=== PATIENT | female | born 1995 | race Caucasian/White ===

== ENCOUNTER 2024-10-16 15:12 | Emergency (ER) | payer OTHER, SELFPAY ==
--- NOTE | 2024-10-16 15:25 | ED.GENMED ---
ED Provider Triage
<Ken Renteria PA-C - Last Filed: 10/16/24 15:29>
-
Patient seen by provider in Triage?: Seen in Triage
Attestation: A medical screening examination has been initiated by a qualified medical provider. Based on the assessment performed at this time, it has been determined that an emergent medical condition may exist and the patient has been informed
that further medical evaluation and possible additional diagnostic testing may be needed.
HPI: 29 year old female presenting to ER for evaluation with concern for possible miscarriage. 2 miscarriages in last 6 months. Heavy bleeding yesterday into today. Unsure if .
GENERAL: Alert , in no apparent distress
EYE: No visual abnormalities.
NECK: Trachea midline
ENT: No visible abnormalities.
LUNGS: No acute respiratory distress
NEUROLOGICAL: Alert and oriented
SKIN: Skin intact. No visible changes.
MUSCULOSKELETAL: Moving extremities normally
PSYCH: Normal and appropriate interaction.
This is a medical evaluation conducted in person to initiate diagnostic evaluation and provide initial therapeutics. Please see further documentation by the treating clinician.
History of Present Illness
<Ken Renteria PA-C - Last Filed: 10/16/24 15:29>
General
Chief Complaint: Problems
Time Seen by Provider: 10/16/24 18:07
<Samantha Mercado MD - Last Filed: 10/16/24 19:47>
General
Source: patient
Exam Limitations: none
Nursing documentation reviewed up to this point in time: agreed with
History of Present Illness
History of Present Illness:
The patient is a pleasant 29-year-old female who reports that she developed vaginal bleeding 2 days ago. Patient reports that this bleeding was unexpected because she was not due for her period until today. Additionally, patient reports increased
pelvic cramping, especially on the right side. Patient reports she has been trying to get for at least 1 year. She reports that so far this year, she is experienced 2 early miscarriages and was afraid that she was miscarrying again.
However, she did not take a test at home. She denies any lightheadedness, chest pain or shortness of breath.
Past History
<Ken Renteria PA-C - Last Filed: 10/16/24 15:29>
Past History
ED Past Medical History: None
ED Past Surgical History: Other (Benign breast tumor removed one month ago)
Social History
Tobacco: Smoker
Personal: Single
Living: with family
Employment: Employed
Family History
Family History: Other (Noncontributory)
<Samantha Mercado MD - Last Filed: 10/16/24 19:47>
Social History
Tobacco: Other
Alcohol: Other
Drug: None
Personal:
Review of Systems
<Samantha Mercado MD - Last Filed: 10/16/24 19:47>
Review of Systems
Allergies reviewed?: Yes
All Other Systems: ROS reviewed and negative except as documented in HPI and ROS
Constitutional: Reports no symptoms
EENT: Reports no symptoms
Respiratory: Reports no symptoms
Cardiac: Reports no symptoms
ABD/GI: Reports no symptoms
: Reports bleeding and other
Musculoskeletal: Reports no symptoms
Skin: Reports no symptoms
Neurological: Reports no symptoms
Endocrine: Reports no symptoms
Hematologic/Lymphatic: Reports no symptoms
Psychiatric: Reports no symptoms
Phy Exam
<Samantha Mercado MD - Last Filed: 10/16/24 19:47>
Physical Exam
Physical Exam:
Physical Exam
General: no apparent distress, not acutely ill. Well appearing
Neck: supple.
Heart: s1/s2 regular rate and rhythm, no murmur. equal radial pulses.
Lungs: no acute respiratory distress. clear bilaterally
Abdomen: normal bowel sounds. not tender. no CVAT
Neuro: alert and oriented. no focal neurological deficits
Skin: no rash
Psychiatric: well kept. interactive and cooperative
Extremities: no edema. no calf tenderness. negative homans. good distal pulses
Course
<Ken Renteria PA-C - Last Filed: 10/16/24 15:29>
Orders/Labs/Results
Orders:
Orders
10/16/24 15:27
Test Result ONCE
10/16/24 15:33
Basic Metabolic Panel Urgent
Complete Blood Count/With Diff Urgent
Ferritin Urgent
Comment: ADD ON
HCG, Serum Qualitative Screen Urgent
Iron Urgent
Total Iron Binding Urgent
10/16/24 18:17
Add On- LAB Urgent
Tests Added?: ferritin
10/16/24 18:32
US Pelvis Only (non-obstetric) Urgent
Comment:
Reason For Exam: R pelvic pain
Abnormal Lab Results
10/16/24
15:33
MPV 12.1 H fL
(7.4-10.4)
10/16/24 15:33
10/16/24 15:33
Vital Signs
Initial and Last Documented VS:
Initial Vital Signs
Temp Pulse Resp BP Pulse Ox
98.7 F 123 18 123/84 100
10/16/24 15:26 10/16/24 15:26 10/16/24 15:26 10/16/24 15:26 10/16/24 15:26
Last Documented Vital Signs
Temp Pulse Resp BP Pulse Ox
98.7 F 123 18 123/84 100
10/16/24 15:26 10/16/24 15:26 10/16/24 15:26 10/16/24 15:26 10/16/24 15:26
<Samantha Mercado MD - Last Filed: 10/16/24 19:47>
Orders/Labs/Results
Orders:
Orders
10/16/24 15:27
Test Result ONCE
10/16/24 15:33
Basic Metabolic Panel Urgent
Complete Blood Count/With Diff Urgent
Ferritin Urgent
Comment: ADD ON
HCG, Serum Qualitative Screen Urgent
Iron Urgent
Total Iron Binding Urgent
10/16/24 18:17
Add On- LAB Urgent
Tests Added?: ferritin
10/16/24 18:32
US Pelvis Only (non-obstetric) Urgent
Comment:
Reason For Exam: R pelvic pain
Abnormal Lab Results
10/16/24
15:33
MPV 12.1 H fL
(7.4-10.4)
10/16/24 15:33
10/16/24 15:33
Vital Signs
Initial and Last Documented VS:
Initial Vital Signs
Temp Pulse Resp BP Pulse Ox
98.7 F 123 18 123/84 100
10/16/24 15:26 10/16/24 15:26 10/16/24 15:26 10/16/24 15:26 10/16/24 15:26
Last Documented Vital Signs
Temp Pulse Resp BP Pulse Ox
98.7 F 123 18 123/84 100
10/16/24 15:26 10/16/24 15:26 10/16/24 15:26 10/16/24 15:26 10/16/24 15:26
Information
Weeks gestation: N/A
Location: N/A
<Samantha Mercado MD - Last Filed: 10/16/24 19:47>
MDM/Problems Addressed
Differential Diagnosis Includes:
Threatened , menstrual period, irregular vaginal bleeding
MDM/Problems Addressed:
Patient presents with acute vaginal bleeding which she feels is unusual because it developed ' 2 days before her period should have come'
<Samantha Mercado MD - Last Filed: 10/16/24 19:47>
*Radiology
Radiology exam reviewed: radiology read reviewed
*Pulse Oximetry
Patient hypoxic: no
*EKG
Interpreted by ED Provider?: NA
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
*Critical Care Note
Total Time (30-74mins, 75-104mins- exclusive of procedures): Not Applicable
Data Reviewed
Source: patient
<Samantha Mercado MD - Last Filed: 10/16/24 19:47>
Patient Management
Social determinants of health affecting care: Living situation and Strong social support
<Samantha Mercado MD - Last Filed: 10/16/24 19:47>
Update Note
Update Note:
Patient continues to look wonderful, comfortable and hemodynamically stable
ED Attending Note
<Ken Renteria PA-C - Last Filed: 10/16/24 15:29>
-
Portions of this chart may have been created with voice recognition software.� Occasional wrong word or��sound alike� substitutions may have occurred due to the inherent limitations of voice recognition software.
Discharge Plan
Departure
Patient Disposition: Home (Routine Discharge)
Date of Disposition: 10/16/24
Time of Disposition: 19:46
Patient with high blood pressure during this ER visit?: No
Condition: Good
Covid-19: Not Applicable
Discharge Problem:
Vaginal bleeding
Instructions: Heavy Periods ED
Prescriptions:
No Action
Vitamins Tablet
1 tab PO DAILY
Pepcid
acetaminophen 325 MG tablet
650 mg PO Q4HPRN PRN (Reason: mild pain) 0RF
sennosides-docusate sodium 1 TABLET tablet
1 tab PO DAILYPRN PRN (Reason: constipation) Qty: 30 0RF
ferrous sulfate [FeroSul] 325 MG tablet
325 mg PO BID Qty: 60 0RF
ibuprofen 600 MG tablet
600 mg PO Q6HPRN PRN (Reason: moderate pain/cramps) Qty: 60 0RF
hydrocortisone 1 APPLIC ointment
0 applic topical BID 0RF
Referrals:
UNKNOWN,NO INTERVIEW [Family Provider] -
Interventions
Interventions:
*Risk Screen - Suicide Last Done: 10/16/24 15:27
*Neglect/Abuse Screening Last Done: 10/16/24 15:27
Discharge Date and Time
Print Language: ARMENIAN
[2024-10-16 15:26] VITALS: BP 123/84
[2024-10-16 15:43] LABS: % Basophils 0.7 % (0-2); % Eosinophils 1.9 % (0-6); % Immature Granulocytes 0.2 % (0-0.5); % Lymphocytes 33.4 % (20.5-51.1); % Monocytes 8.4 % (1.7-9.3); % Neutrophils 55.4 % (42.2-75.2); Absolute Eosinophils 0.1 10^3/uL (0-0.7); Absolute Monocytes 0.5 10^3/uL (0.1-0.6); Absolute Neutrophils 3.2 10^3/uL (1.4-6.5); Hematocrit 38.9 % (37.0-47.0); Mean Corp Hgb Conc. 33.4 g/dL (33.0-37.0); Mean Corpuscular Hgb 29.5 pg (27.0-31.0); Mean Corpuscular Volume 88.2 fL (81.0-99.0); Mean Platelet Volume 12.1 fL (7.4-10.4); Nucleated Red Blood Cells % 0 %; Platelet Count 220 10^3/uL (130-400); Red Blood Cell Count 4.41 10^6/uL (4.20-5.40); Red Cell Dist. Width 12.6 % (11.5-14.5); White Blood Cell Count 5.8 10^3/uL (4.8-10.8)
[2024-10-16 15:52] LABS: HCG, Serum Qualitative Screen Negative
[2024-10-16 15:55] LABS: Blood Urea Nitrogen 13 mg/dl (7-17); Calcium 9.7 mg/dl (8.4-10.2); Carbon Dioxide 25 mmol/L (22-30); Chloride 104 mmol/L (98-107); Glucose 76 mg/dl (70-99); Iron 101 ug/dl (37-170); Potassium 3.9 mmol/L (3.5-5.1); Sodium 143 mmol/L (135-145); eGFR > 60.00
[2024-10-16 16:04] LABS: Percent Saturation 28 % (20-50); Total Iron Binding Capacity 351 ug/dl (265-497)
[2024-10-16 19:12] LABS: Ferritin 31.7 ng/ml (6.24-137)
[2024-10-16 20:13] VITALS: BP 130/72
== END 2024-10-16 20:15 | disposition home or self-care (01) ==
LOC: EMR 15:12
PROVIDERS: Physician Assistant Medical; EMERGENCY PHYSICIAN Emergency Medicine; FAMILY PHYSICIAN Physician Assistant
DX: N93.9 Abnormal uterine and vaginal bleeding, unspecified (principal); F17.200 Nicotine dependence, unspecified, uncomplicated
CPT/HCPCS: 99284; 76856; 80048; 82728; 83540; 83550; 84703; 85025